=== PATIENT | male | born 1940 | race African-American/Black ===

== ENCOUNTER 2019-05-10 17:50 | Inpatient (IN) | payer MEDICARE ==
[~2019-05-10] VITALS: Ht 182.9 cm; Wt 55.5 kg
[2019-05-10] MEDS ORDERED: SODIUM CHLORIDE 0.9% 500 ML IV ONE (18:15)
[2019-05-10 18:52] LABS: BASOPHILS % 0.4 % (0.0-2.0); EOSINOPHILS % 0.1 % (0.0-5.0); HEMOGLOBIN. 12.8 g/dL (14.0-18.0); LYMPHOCYTES % 16.2 % (20.0-50.0); MEAN CORPUSCULAR HEMOGLOBIN 31.6 pg (28.0-32.0); MEAN CORPUSCULAR VOLUME 93.4 fL (80.0-94.0); MONOCYTES % 9.8 % (2.0-8.0); NEUTROPHILS % 73.5 % (40.0-76.0); PLATELET 170 x1000/uL (130-400); RED BLOOD CELL COUNT 4.07 mill/uL (4.7-6.1); RED CELL DISTRIBUTION WIDTH 15.7 % (11.6-14.6)
[2019-05-10 18:53] LABS: CHLORIDE 101 mEq/L (98-107)
[2019-05-10 18:54] LABS: INR 1.1; PARTIAL THROMBOPLASTIN TIME 28.6 sec (23.4-31.0); PROTHROMBIN TIME 10.8 sec (9.6-11.0)
[2019-05-10 18:58] LABS: ETHANOL BLOOD < 10 mg/dL
[2019-05-10 21:58] LABS: CLARITY URINE CLOUDY (CLEAR); COLOR URINE DARK YELLOW (YELLOW); KETONES URINE 1+ (NEGATIVE); LEUKOCYTE ESTERASE URINE TRACE (NEGATIVE); NITRITE URINE NEGATIVE (NEGATIVE); OCCULT BLOOD URINE NEGATIVE (NEGATIVE); PROTEIN URINE 2+ (NEGATIVE); SPECIFIC GRAVITY URINE 1.031 (1.005-1.030)
[2019-05-10 22:08] LABS: *AMPHETAMINES SCREEN URINE NEGATIVE (NEGATIVE); *BARBITURATES SCREEN URINE NEGATIVE (NEGATIVE); *BENZODIAZEPINES SCREEN URINE NEGATIVE (NEGATIVE); *COCAINE SCREEN URINE NEGATIVE (NEGATIVE); METHADONE URINE SCREEN NEGATIVE (NEGATIVE)
[2019-05-10 22:09] LABS: CANNABINOID URINE SCREEN NEGATIVE (NEGATIVE); OPIATES URINE SCREEN NEGATIVE (NEGATIVE); PHENCYCLIDINE URINE SCREEN NEGATIVE (NEGATIVE)
[2019-05-11 14:50] VITALS: BP 127/60
[2019-05-11] MEDS ORDERED: ACETAMINOPHEN 325MG TABLET PO PRN (15:30)
[2019-05-11] MEDS ORDERED: GUAIFENESIN 200MG/10ML SUGAR FREE UDC PO PRN (15:30)
[2019-05-11] MEDS ORDERED: DOCUSATE SODIUM 100MG CAPSULE PO PRN (15:30)
[2019-05-11] MEDS ORDERED: ONDANSETRON HCL 4MG/2ML INJ IV PRN (15:30)
[2019-05-11] MEDS ORDERED: CLONIDINE 0.1MG TABLET PO PRN (15:30)
[2019-05-11 16:00] VITALS: BP 127/60
[2019-05-11] MEDS: SODIUM CHLORIDE 0.9% 1,000 ML IV SCH (18:55)
[2019-05-11 20:00] VITALS: BP_SYST 112; BP_SYST 154; BP_DIAS 66; BP_DIAS 67
[2019-05-12] VITALS: BP 124/57
[2019-05-12 04:00] VITALS: BP 147/62
[2019-05-12] MEDS: SODIUM CHLORIDE 0.9% 1,000 ML IV SCH ×2 (05:22→18:46)
[2019-05-12] MEDS: AMLODIPINE 10MG TABLET PO SCH (08:18)
[2019-05-12] MEDS: ASPIRIN 81MG EC TABLET PO SCH (08:18)
[2019-05-12] MEDS: LORAZEPAM 2MG/ML CPJ IV PRN ×2 (08:19→11:48)
[2019-05-12] MEDS ORDERED: PNEUMOCOCCAL 23-VAL P-SAC VAC 0.5 ML IM ONE (09:00)
[2019-05-12] MEDS ORDERED: INFLUENZA VIRUS VACCINE(AFLURIA) 0.5ML SYR IM ONE (09:00)
[2019-05-12 09:29] LABS: BASOPHILS % 0.6 % (0.0-2.0); EOSINOPHILS % 0.4 % (0.0-5.0); HEMATOCRIT. 40.2 % (42.0-52.0); HEMOGLOBIN. 13.3 g/dL (14.0-18.0); LYMPHOCYTES % 38.5 % (20.0-50.0); MEAN CORPUSCULAR HEMOGLOBIN 31.3 pg (28.0-32.0); MEAN CORPUSCULAR VOLUME 94.5 fL (80.0-94.0); MEAN PLATELET VOLUME 9.4 fl (7.4-10.4); MONOCYTES % 9.6 % (2.0-8.0); NEUTROPHILS % 50.9 % (40.0-76.0); PLATELET 174 x1000/uL (130-400); RED BLOOD CELL COUNT 4.26 mill/uL (4.7-6.1); RED CELL DISTRIBUTION WIDTH 15.7 % (11.6-14.6)
[2019-05-12 09:34] LABS: CHLORIDE 106 mEq/L (98-107)
[2019-05-12 09:41] LABS: LDL CHOLESTEROL 53 mg/dL (5-100)
[2019-05-12 09:42] LABS: HDL CHOLESTEROL 79 mg/dL (40-59)
[2019-05-12 09:57] VITALS: BP 165/66
[2019-05-12] MEDS ORDERED: IPRATROPIUM/ALBUTEROL 0.5-3(2.5)MG/3ML NEB HHN PRN (11:00)
[2019-05-12 12:15] VITALS: BP 121/68
[2019-05-12 16:41] VITALS: BP 123/64
[2019-05-12 20:00] VITALS: BP 96/69
[2019-05-13] VITALS: BP 134/67
[2019-05-13 04:00] VITALS: BP 129/73
[2019-05-13 08:00] VITALS: BP 143/73
[2019-05-13] MEDS: SODIUM CHLORIDE 0.9% 1,000 ML IV SCH ×3 (08:00→20:56)
[2019-05-13] MEDS: ASPIRIN 81MG EC TABLET PO SCH (09:58)
[2019-05-13] MEDS: LORAZEPAM 2MG/ML CPJ IV PRN ×2 (09:59→23:24)
[2019-05-13] MEDS: AMLODIPINE 10MG TABLET PO SCH (09:59)
[2019-05-13 12:00] VITALS: BP 152/79
[2019-05-13 16:00] VITALS: BP 131/76
[2019-05-13 20:00] VITALS: BP 125/57
[2019-05-14] VITALS (8 sets, daily range): BP systolic 104–147; BP diastolic 52–83
[2019-05-14] MEDS: SODIUM CHLORIDE 0.9% 1,000 ML IV SCH (09:13)
[2019-05-14] MEDS: AMLODIPINE 10MG TABLET PO SCH (09:13)
[2019-05-14] MEDS: ASPIRIN 81MG EC TABLET PO SCH (09:13)
[2019-05-14] MEDS: LORAZEPAM 2MG/ML CPJ IV PRN (22:31)
[2019-05-15] VITALS: BP 152/89
[2019-05-15 04:00] VITALS: BP 163/75
[2019-05-15] MEDS: LORAZEPAM 2MG/ML CPJ IV PRN (05:53)
[2019-05-15] MEDS: SODIUM CHLORIDE 0.9% 1,000 ML IV SCH (05:53)
[2019-05-15 08:30] VITALS: BP 116/74
[2019-05-15] MEDS: AMLODIPINE 10MG TABLET PO SCH (09:40)
[2019-05-15] MEDS: ASPIRIN 81MG EC TABLET PO SCH (09:40)
[2019-05-15] MEDS ORDERED: LORAZEPAM 2MG/ML CPJ IV PRN (10:00)
[2019-05-15 12:19] VITALS: BP 143/68
[2019-05-15] MEDS: LOSARTAN POTASSIUM 50 MG TABLET PO SCH (14:54)
[2019-05-15 16:02] VITALS: BP 135/69
[2019-05-15 20:00] VITALS: BP 111/52
[2019-05-16] VITALS: BP 127/59
[2019-05-16 04:00] VITALS: BP 155/77
[2019-05-16 08:00] VITALS: BP 147/68
[2019-05-16] MEDS: LOSARTAN POTASSIUM 50 MG TABLET PO SCH (09:02)
[2019-05-16] MEDS: AMLODIPINE 10MG TABLET PO SCH (09:02)
[2019-05-16] MEDS: ASPIRIN 81MG EC TABLET PO SCH (09:02)
[2019-05-16 12:00] VITALS: BP 134/70
[2019-05-16] MEDS: ENOXAPARIN 40MG/0.4ML SYR SUBCUT SCH (13:52)
[2019-05-16 16:00] VITALS: BP 110/54
[2019-05-16 20:00] VITALS: BP 102/45
[2019-05-17] VITALS (7 sets, daily range): BP systolic 114–165; BP diastolic 59–80
[2019-05-17 07:21] LABS: VITAMIN B12 SERUM 653 pg/mL (211-911)
[2019-05-17] MEDS: AMLODIPINE 10MG TABLET PO SCH (09:37)
[2019-05-17] MEDS: LOSARTAN POTASSIUM 50 MG TABLET PO SCH (09:37)
[2019-05-17] MEDS: ASPIRIN 81MG EC TABLET PO SCH (09:38)
[2019-05-17] MEDS: ENOXAPARIN 40MG/0.4ML SYR SUBCUT SCH (09:38)
[2019-05-17] MEDS: MEMANTINE HCL 5MG TABLET PO SCH (20:48)
[2019-05-18 00:30] VITALS: BP 119/62
[2019-05-18 04:00] VITALS: BP 137/69
[2019-05-18 08:09] VITALS: BP 157/75
[2019-05-18] MEDS: AMLODIPINE 10MG TABLET PO SCH (08:51)
[2019-05-18] MEDS: MEMANTINE HCL 5MG TABLET PO SCH (08:51)
[2019-05-18] MEDS: ENOXAPARIN 40MG/0.4ML SYR SUBCUT SCH (08:51)
[2019-05-18] MEDS: ASPIRIN 81MG EC TABLET PO SCH (08:51)
[2019-05-18] MEDS: LOSARTAN POTASSIUM 50 MG TABLET PO SCH (08:51)
[2019-05-18 11:42] VITALS: BP 112/52
[2019-05-18 12:00] VITALS: BP 112/52
== END 2019-05-18 14:40 | disposition home or self-care (01) | DRG 190 ==
LOC: EDBD 17:50 → ER 17:50 → 6EST 05-11 13:47 → EDBEDREQ 05-11 13:49 → ENRESERV 05-11 14:50 → 6WST 05-11 21:38
PROVIDERS: ADMIT Hospitalist; ATTEND Hospitalist
DX: J44.1 Chronic obstructive pulmonary disease with (acute) exacerbation (principal); G92 Toxic encephalopathy; E86.0 Dehydration; F03.90 Unspecified dementia, unspecified severity, without behavioral disturbance, psychotic disturbance, mood disturbance, and anxiety; F17.200 Nicotine dependence, unspecified, uncomplicated; I10 Essential (primary) hypertension; W18.39XA Other fall on same level, initial encounter; Y93.89 Activity, other specified; Y92.512 Supermarket, store or market as the place of occurrence of the external cause; Y99.8 Other external cause status
CPT/HCPCS: 36415; 71045; 80053; 80061; 80305; 80320; 81003; 82607; 83880; 84443; 84484; 85025; 90686; 90732; 93005; 93306; 93880; 93970; 97162; 99285; J1650; J2060; J7040; G0480

== ENCOUNTER 2019-10-26 15:14 | Emergency (ER) | payer OTHER, MEDICAID ==
[~2019-10-26] VITALS: Ht 180.3 cm; Wt 75.0 kg
[2019-10-26 17:00] VITALS: BP 70/37
[2019-10-26] MEDS ORDERED: EPINEPHRINE 0.1MG/ML (1:10,000) 10ML SYR ONE (17:10)
[2019-10-26] MEDS ORDERED: SODIUM BICARBONATE 8.4% MEQ/ML 50ML VIAL IV ONE (17:10)
[2019-10-26 17:14] LABS: BG BASE EXCESS -24.1 mmol/L (-2.0-2.0); BG CARBOXYHEMOGLOBIN 0.6 % (0.5-1.5); BG FRACTION INSPIRED OXYGEN 60; BG HCO3 ACT 11.8 mmol/L (22.0-26.0); BG OXYGEN SATURATION 46.7 % (92.0-98.5); BG OXYHEMOGLOBIN 46.4 % (94.0-97.0); BG PH 6.797 (7.350-7.450); BG PO2 45.2 mmHg (75.0-100.0); BG SAMPLE SITE RIGHT BRACHIAL; BG TOTAL HEMOGLOBIN 14.8 g/dL (12.0-18.0); BG VENT MODE MASK - SIMPLE
[2019-10-26 17:49] LABS: HEMATOCRIT. 39.7 % (42.0-52.0); HEMOGLOBIN. 12.8 g/dL (14.0-18.0); MEAN CORPUSCULAR VOLUME 96.2 fL (80.0-94.0); MEAN PLATELET VOLUME 9.2 fl (7.4-10.4); PLATELET 193 x1000/uL (130-400); RED BLOOD CELL COUNT 4.12 mill/uL (4.7-6.1); RED CELL DISTRIBUTION WIDTH 16.2 % (11.6-14.6)
[2019-10-26 17:54] LABS: CHLORIDE 100 mEq/L (98-107)
[2019-10-26 17:56] LABS: INR 1.2; PROTHROMBIN TIME 12.8 sec (9.6-11.0)
[2019-10-26 17:58] LABS: ETHANOL BLOOD < 10 mg/dL
[2019-10-26] MEDS ORDERED: CEFTRIAXONE 1 G PREMIX 50 ML IV NR (19:00)
[2019-10-26] MEDS ORDERED: AZITHROMYCIN 500 MG in DEXT 5% WATER 250 ML IV SCH (19:30)
[2019-10-26 19:37] LABS: NUCLEATED RED BLOOD CELLS 2 /100 WBC; PLATELET ESTIMATE NORMAL
[2019-10-27] MEDS ORDERED: AZITHROMYCIN 500 MG in DEXT 5% WATER 250 ML IV SCH (19:00)
== END 2019-10-26 17:44 | disposition expired ==
LOC: ER 15:14 → CANBEDREQ 22:34
DX: A41.9 Sepsis, unspecified organism (principal); R65.20 Severe sepsis without septic shock; I46.9 Cardiac arrest, cause unspecified; F03.90 Unspecified dementia, unspecified severity, without behavioral disturbance, psychotic disturbance, mood disturbance, and anxiety; J18.9 Pneumonia, unspecified organism; R09.02 Hypoxemia; Z20.828 Contact with and (suspected) exposure to other viral communicable diseases
CPT/HCPCS: 31500; 36415; 36600; 36680; 71045; 80053; 80320; 82375; 82805; 83605; 83690; 84145; 84484; 85025; 85610; 87040; 87077; 87186; 87635; 92950; 93005; 99291; J3490; 36556; 99285; J0456; J7060; G0480